=== PATIENT | female | born 1960 | race Caucasian/White ===

== ENCOUNTER 2017-01-17 07:08 | Emergency (ER) | payer BC ==
[~2017-01-17] VITALS: Ht 162.6 cm; Wt 64.0 kg
[~2017-01-17 07:08] MED LIST: CELEXA10 MG PO; CIPRO500 MG PO; FLAGYL500 MG PO; PERCOCET 5/31 TABLET PO; TYLENOL EXTRA500 MG PO
[2017-01-17 08:03] LABS: HEMATOCRIT 38.4 % (36.0-46.0); MCH 29.3 PG (29.0-34.0); MCHC 32.6 G/DL (30.0-36.0); MCV 90.1 FL (83-99); MEAN PLAT.VOLUME 9.4 uM^3 (9.5-12.4); PLATELET COUNT 297 K/uL (156-360); RBC DIS.WIDTH-SD 42.6 % (39-53); RED BLOOD COUNT 4.26 M/uL (3.80-5.20); WHITE BLOOD COUNT 6.2 K/uL (4.1-10.2)
[2017-01-17 08:43] LABS: QUANTITATIVE HCG < 4.0 MIU/ML
[2017-01-17 09:04] LABS: C DIFF TOXIN NEGATIVE (NEGATIVE)
[2017-01-17 09:07] LABS: BILIRUBIN NEGATIVE; BLOOD NEGATIVE; COLOR YELLOW ((YELLOW)); GLUCOSE (STRIP) NEGATIVE; KETONES NEGATIVE; LEUKOCYTES NEGATIVE; NITRITE NEGATIVE; PROTEIN (STRIP) NEGATIVE; SPECIFIC GRAVITY 1.027 (1.000-1.030)
[2017-01-17 09:08] LABS: ADD MIUA? NO
[2017-01-17 09:10] LABS: PROBE CHECK PASS; SPECIMEN PROCESSING CONTROL PASS
[2017-01-17] MEDS ORDERED: IMODIUM A-D2 M2 PO (09:56)
[2017-01-17] MEDS ORDERED: ZOFRAN ODT4 MG PO (09:56)
[2017-01-17 10:12] LABS: ALKALINE PHOSPHATASE 102 IU/L (3-129); ANION GAP 12 MEQ/L (2-14); CHLORIDE 103 MEQ/L (99-109); GFR ESTIMATE (CALCULATED) > 59 mL/min/; GLUCOSE 98 mg/dL (70-99); LIPASE 11 U/L (1.0-51.0); POTASSIUM 3.5 MEQ/L (3.7-5.4); SAMPLE HEMOLYSIS CHECK 0; SAMPLE ICTERIC CHECK 0; SAMPLE LIPEMIA CHECK 0; SODIUM 138 MEQ/L (136-147); TOTAL BILIRUBIN 0.4 MG/DL (0.0-1.0); UREA NITROGEN (BUN) 15 mg/dL (9-23)
[2017-01-17 10:20] VITALS: BP 116/72
== END 2017-01-17 10:29 | disposition home or self-care (01) ==
LOC: EME 07:08
PROVIDERS: Nurse Practitioner Family
DX: R10.84 Generalized abdominal pain (principal); R19.7 Diarrhea, unspecified; Z88.0 Allergy status to penicillin; Z88.6 Allergy status to analgesic agent
CPT/HCPCS: 80053; 81003; 83690; 84702; 85027; 87493; 99281; 99284